=== PATIENT | female | born 1990 | race Caucasian/White ===

== ENCOUNTER 2017-01-30 12:05 | Emergency (ER) | payer MEDICAID ==
[~2017-01-30] VITALS: Ht 162.6 cm; Wt 72.6 kg
[~2017-01-30 12:05] MED LIST: Q-PAP
[2017-01-30] MEDS ORDERED: PHENYTOIN IV DILANTIN 500 MG in SODIUM CHL 0.9% 100 ML IV ONE (12:30)
[2017-01-30] MEDS ORDERED: PHENYTOIN SODIUM 100 MG CAP PO ONE (12:30)
[2017-01-30 12:45] VITALS: BP 133/86
== END 2017-01-30 14:31 | disposition home or self-care (01) ==
LOC: ER 12:05 → EDBD 12:05 → ER 14:31
DX: R56.9 Unspecified convulsions (principal); M10.9 Gout, unspecified; F17.210 Nicotine dependence, cigarettes, uncomplicated; F12.10 Cannabis abuse, uncomplicated; F15.10 Other stimulant abuse, uncomplicated
CPT/HCPCS: 94761; 96365; 99284; J1165; J7040